=== PATIENT | male | born 1975 | race Caucasian/White ===

== ENCOUNTER 2016-09-25 16:55 | Emergency (ER) | payer OTHER ==
[2016-09-25 17:26] VITALS: BP 141/71
[2016-09-25] MEDS ORDERED: Ibuprofen 200 MG Tab PO ONE (17:30)
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
[2016-09-25] MEDS ORDERED: Acetaminophen/HYDROcodone 325-10 MG Tab PO ONE (18:05)
== END 2016-09-25 18:30 | disposition home or self-care (01) ==
LOC: KA.ED 16:55
DX: S40.012A Contusion of left shoulder, initial encounter (principal); S70.02XA Contusion of left hip, initial encounter; V69.9XXA Occupant (driver) (passenger) of heavy transport vehicle injured in unspecified traffic accident, initial encounter
CPT/HCPCS: 73030; 73502; 99284; A9270